=== PATIENT | female | born 1990 | race African-American/Black ===

== ENCOUNTER 2017-03-22 14:07 | Emergency (ER) | payer OTHER ==
[2017-03-22 14:22] VITALS: BP 132/89; PULSE 92; TEMP 97.7; BMI 27.4
--- NOTE | 2017-03-22 15:57 | PDOC ---
History of Present Illness - General Chief Complaint: Pain Stated Complaint: PAIN Time Seen by Provider: 03/22/17 15:43 History Source: Patient Exam Limitations: No Limitations - History of Present Illness Initial Comments: 03/22/17 15:51 c/o sudden onset pain to the left side of face while sleeping this morning, left era pain radiates to in front of left ear. no fever no chills no dental pain no recent dental surgery . no fever, denies FB sensation in the ear. Pt has FROM of the jaw. 03/22/17 18:49 Timing/Duration: 4-6 hours, intermittent Severity: severe Associated Symptoms: denies: denies symptoms, chest pain, cough, diaphoresis, fever/chills, headaches, loss of appetite Past History - Past Medical History Allergies/Adverse Reactions: Allergies Allergy/AdvReac Type Severity Reaction Status Date / Time No Known Allergies Allergy Verified 03/22/17 14:22 Home Medications: Ambulatory Orders Amoxicillin - [Amoxicillin 875mg Tablet -] 875 mg PO BID #20 tablet 03/22/17 Oxycodone HCl/Acetaminophen [Percocet 5-325 mg Tablet] 1 tab PO Q4H PRN #6 tablet MDD 6 tabs 03/22/17 Prednisone [Deltasone] 20 mg PO DAILY #3 tablet 03/22/17 Asthma: No Cancer: No Cardiac Disorders: No COPD: No Diabetes: No HTN: No Seizures: No Thyroid Disease: No - Suicide/Smoking/Psychosocial Hx Smoking Status: No Smoking History: Never smoked Number of Cigarettes Smoked Daily: 0 Hx Alcohol Use: No Drug/Substance Use Hx: No Hx Substance Use Treatment: No Review of Systems - Review of Systems Able to Perform ROS?: Yes Is the patient limited Luxembourgish proficient: No Constitutional: No: Symptoms Reported HEENTM: Yes: Symptoms Reported Respiratory: No: Symptoms reported : No: Symptoms Reported Musculoskeletal: No: Symptoms Reported Integumentary: No: Symptoms Reported, Pallor Neurological: No: Symptoms reported *Physical Exam - Vital Signs Last Vital Signs Temp Pulse Resp BP Pulse Ox 97.7 F 92 H 18 132/89 99 03/22/17 14:18 03/22/17 14:18 03/22/17 14:18 03/22/17 14:18 03/22/17 14:18 - Physical Exam General Appearance: Yes: Nourished, Appropriately Dressed HEENT: positive: EOMI, STEFAN, TM Dull (left ear , neg mastoid tenderness, negative lymphadeonapthy, pt also with pain to her left gum line dental pain , no abscess, missing teeth ), TM Erythema, Other (tender to lower left gum line no abscess or drainage ). negative: Pharynx Normal, Rhinorrhea Neck: positive: Supple, Other (FROM of the neck ). negative: Tender, Lymphadenopathy (R), Lymphadenopathy (L), Rigidity, Tender lateral, Tender midline Respiratory/Chest: positive: Lungs Clear, Normal Breath Sounds. negative: Chest Tender Cardiovascular: positive: Regular Rhythm, Regular Rate Gastrointestinal/Abdominal: positive: Normal Bowel Sounds Musculoskeletal: positive: Normal Inspection Extremity: positive: Normal Capillary Refill, Normal Inspection, Normal Range of Motion Integumentary: positive: Normal Color, Dry, Warm Neurologic: positive: Fully Oriented, Alert, Normal Mood/Affect, Normal Response , Motor Strength 5/5, Finger to Nose (intact ), Other (neg facial droop or asymetry ) *DC/Admit/Observation/Transfer Diagnosis at time of Disposition: Pain, dental Otitis media Qualifiers: Otitis media type: suppurative Chronicity: acute Laterality: left Recurrence: not specified as recurrent Spontaneous tympanic membrane rupture: without spontaneous rupture Qualified Code(s): H66.002 - Acute suppurative otitis media without spontaneous rupture of ear drum, left ear - Discharge Dispostion Disposition: HOME Condition at time of disposition: Good - Prescriptions Prescriptions: Amoxicillin - [Amoxicillin 875mg Tablet -] 875 mg PO BID #20 tablet Oxycodone HCl/Acetaminophen [Percocet 5-325 mg Tablet] 1 tab PO Q4H PRN #6 tablet MDD 6 tabs PRN Reason: Severe Pain Prednisone [Deltasone] 20 mg PO DAILY #3 tablet - Referrals Referrals: Lv Mckeon MD [Primary Care Provider] - Denny Valderrama MD [Staff Physician] - - Patient Instructions Additional Instructions: follow with your doctor or ENT within the next 2 days for follow up take amoxicillin as directed for 10 days take the prednisone for 3 days take percocet for severe pain apply warm compresses to the area of pain every 3hrs for 30 minutes return to ER for any worsening symptoms - Post Discharge Activity
== END 2017-03-22 16:03 | disposition home or self-care (01) ==
LOC: JERFT 14:07
DX: H66.002 Acute suppurative otitis media without spontaneous rupture of ear drum, left ear (principal); K08.89 Other specified disorders of teeth and supporting structures
CPT/HCPCS: 99281-25

== ENCOUNTER 2018-03-05 14:47 | Emergency (ER) | payer OTHER ==
[2018-03-05 15:05] VITALS: BP 108/71; PULSE 80; TEMP 98.5; BMI 29.2
--- NOTE | 2018-03-05 15:52 | PDOC ---
History of Present Illness - General Chief Complaint: Cold Symptoms Stated Complaint: COUGHING Time Seen by Provider: 03/05/18 15:12 History Source: Patient Exam Limitations: Clinical Condition - History of Present Illness Initial Comments: 03/05/18 15:46 Patient with no significant past medical history advice form Department of Health to come in for treatment for pertussis status post child testing positive for pertussis yesterday. Patient reported mild intermittent cough. Patient denies fever, chills or any other symptoms. Timing/Duration: 24 hours Past History - Past Medical History Allergies/Adverse Reactions: Allergies Allergy/AdvReac Type Severity Reaction Status Date / Time No Known Allergies Allergy Verified 03/05/18 15:03 Home Medications: Ambulatory Orders Azithromycin [Zithromax 250mg Tablets -] 250 mg PO UTDICT #6 tab 03/05/18 Benzonatate [Tessalon Pearls -] 100 mg PO TID PRN #21 capsule 03/05/18 Ipratropium [place] 2 spray NS BID PRN #1 spray 03/05/18 Asthma: No Cancer: No Cardiac Disorders: No COPD: No Diabetes: No HTN: No Seizures: No Thyroid Disease: No - Suicide/Smoking/Psychosocial Hx Smoking Status: No Smoking History: Never smoked Number of Cigarettes Smoked Daily: 0 Hx Alcohol Use: No Drug/Substance Use Hx: No Hx Substance Use Treatment: No Review of Systems - Review of Systems Able to Perform ROS?: Yes Is the patient limited Greek proficient: No Constitutional: No: Chills, Fever, Malaise HEENTM: Yes: Symptoms Reported, See HPI, Nose Congestion. No: Eye Pain, Blurred Vision, Tearing, Recent change in vision, Double Vision, Cataracts, Ear Pain, Ocular Prothesis, Ear Discharge, Nose Pain, Tinnitus, Nose Bleeding, Hearing Loss, Throat Pain, Throat Swelling, Mouth Pain, Dental Problems, Difficulty Swallowing, Mouth Swelling, Other Respiratory: Yes: Symptoms reported, See HPI, Cough (intermittent). No: Orthopnea, Shortness of Breath, SOB with Exertion, SOB at Rest, Stridor, Wheezing, Productive cough, Hemoptysis, Other Cardiac (ROS): No: Symptoms Reported, See HPI, Chest Pain, Edema, Irregular Heart Rate, Lightheadedness, Palpitations, Syncope, Chest Tightness, Other ABD/GI: No: Nausea, Vomiting All Other Systems: Reviewed and Negative *Physical Exam - Vital Signs Last Vital Signs Temp Pulse Resp BP Pulse Ox 98.5 F 80 18 108/71 99 03/05/18 15:03 03/05/18 15:03 03/05/18 15:03 03/05/18 15:03 03/05/18 15:03 - Physical Exam Comments: 03/05/18 15:50 GENERAL: Well developed, well nourished. Awake and alert. No acute distress. HEENT: Normocephalic, atraumatic. PERRLA, EOMI. No conjunctival pallor. Sclera are non-icteric. Moist mucous membranes. Oropharynx is clear. NECK: Supple. Full ROM. CARDIOVASCULAR: Regular rate and rhythm. No murmurs, rubs, or gallops. Distal pulses are 2+ and symmetric. PULMONARY: No evidence of respiratory distress. Lungs clear to auscultation bilaterally. No wheezing, rales or rhonchi. ABDOMINAL: Soft. Non-tender. Non-distended. No rebound or guarding. No organomegaly. Normoactive bowel sounds. MUSCULOSKELETAL Normal range of motion at all joints. EXTREMITIES: No cyanosis. No clubbing. No edema. No calf tenderness. SKIN: Warm and dry. Normal capillary refill. No rashes. No jaundice. NEUROLOGICAL: Alert, awake, appropriate. Gait is normal without ataxia. PSYCHIATRIC: Cooperative. Good eye contact. Appropriate mood General Appearance: Yes: Nourished, Appropriately Dressed. No: Apparent Distress Moderate Sedation - Procedure Monitoring Vital Signs: Procedure Monitoring Vital Signs Temperature 98.5 F 03/05/18 15:03 Pulse Rate 80 03/05/18 15:03 Respiratory Rate 18 03/05/18 15:03 Blood Pressure 108/71 03/05/18 15:03 O2 Sat by Pulse Oximetry (%) 99 03/05/18 15:03 Medical Decision Making - Medical Decision Making 03/05/18 15:50 Patient with no significant past medical history advice form Department of Health to come in for treatment for pertussis status post child testing positive for pertussis yesterday. Patient reported mild intermittent cough. Clinical exam unremarkable. Lungs clear to auscultation bilateral. Pertussis PCR lab ordered. Patient be discharged on azithromycin for 5 days given postexposure as requested by Department of Health *DC/Admit/Observation/Transfer Diagnosis at time of Disposition: Pertussis exposure, Cough - Discharge Dispostion Disposition: HOME Condition at time of disposition: Stable Decision to Admit order: No - Prescriptions Prescriptions: Azithromycin [Zithromax 250mg Tablets -] 250 mg PO UTDICT #6 tab Benzonatate [Tessalon Pearls -] 100 mg PO TID PRN #21 capsule PRN Reason: Cough Ipratropium [place] 2 spray NS BID PRN #1 spray PRN Reason: nasal congestion - Referrals Referrals: Jackelyn Mckeon [Primary Care Provider] - - Patient Instructions Printed Discharge Instructions: DI for Pertussis-Adult, Pertussis Additional Instructions: Take medication as prescribed. Increase fluid intake. You will be contacted with lab results. - Post Discharge Activity
== END 2018-03-05 16:03 | disposition home or self-care (01) ==
LOC: JERFT 14:47
DX: A37.90 Whooping cough, unspecified species without pneumonia (principal)
CPT/HCPCS: 87798; 99281-25

== ENCOUNTER 2019-04-17 19:01 | Emergency (ER) | payer OTHER ==
[2019-04-17 19:35] VITALS: BP 124/88; PULSE 90; TEMP 98.3; BMI 34.8
--- NOTE | 2019-04-17 19:46 | PDOC ---
History of Present Illness - General Chief Complaint: Injury Stated Complaint: FALL ANKLE INJURY Time Seen by Provider: 04/17/19 19:35 History Source: Patient - History of Present Illness Occurred: reports: this evening Severity: Yes: moderate Lower Extremity Pain Location: right: ankle Method of Injury: Yes: fell Past History - Past Medical History Allergies/Adverse Reactions: Allergies Allergy/AdvReac Type Severity Reaction Status Date / Time No Known Allergies Allergy Verified 04/17/19 19:35 Home Medications: Ambulatory Orders Ibuprofen [Motrin -] 600 mg PO QID #28 tablet 04/17/19 Asthma: No Cancer: No Cardiac Disorders: No COPD: No Diabetes: No HTN: No Seizures: No Thyroid Disease: No - Psycho Social/Smoking Cessation Hx Smoking Status: No Smoking History: Never smoked Number of Cigarettes Smoked Daily: 0 Hx Alcohol Use: No Drug/Substance Use Hx: No Hx Substance Use Treatment: No Review of Systems - Review of Systems Musculoskeletal: Yes: Joint Pain, Joint Swelling *Physical Exam - Vital Signs Last Vital Signs Temp Pulse Resp BP Pulse Ox 98.3 F 90 18 124/88 98 04/17/19 19:32 04/17/19 19:32 04/17/19 19:32 04/17/19 19:32 04/17/19 19:32 - Physical Exam General Appearance: Yes: Appropriately Dressed. No: Apparent Distress HEENT: positive: Normal Voice Neck: positive: Supple Respiratory/Chest: negative: Respiratory Distress Extremity: positive: Tender (diffusely to R ankle, no sig swelling) Integumentary: positive: Dry, Warm Neurologic: positive: Fully Oriented, Alert, Normal Mood/Affect ED Treatment Course - RADIOLOGY Radiology Studies Ordered: Category Date Time Status ANKLE & FOOT-RIGHT* [RAD] Stat Radiology 04/17/19 19:38 Ordered Medical Decision Making - Medical Decision Making 04/17/19 20:26 29-year-old female no significant history here with right ankle pain and swelling after falling down several steps this evening. Has not been able to bear weight since. Denies any other injuries see exam Ankle sprain XR neg for fx ELSIE, ortho shoe and crutches given -Dc w/ pain control and RICE -Ortho f/u as needed Discharge - Discharge Information Problems reviewed: Yes Clinical Impression/Diagnosis: Ankle sprain Qualifiers: Encounter type: initial encounter Involved ligament of ankle: unspecified ligament Laterality: right Qualified Code(s): S93.401A - Sprain of unspecified ligament of right ankle, initial encounter Condition: Good Disposition: HOME - Additional Discharge Information Prescriptions: Ibuprofen [Motrin -] 600 mg PO QID #28 tablet - Follow up/Referral Referrals: Neeraj Ronquillo MD [Staff Physician] - - Patient Discharge Instructions Patient Printed Discharge Instructions: DI for Ankle Sprain Additional Instructions: Take Motrin as needed for pain, elevate extremity and use crutches as needed for weight bearing If pain persist after 2 weeks, please follow-up with orthopedics - Post Discharge Activity
[2019-04-17] MEDS ORDERED: IBUPROFEN 400 MG TABLET (FP) PO ONE ×2 (20:23→20:26)
== END 2019-04-17 20:59 | disposition home or self-care (01) ==
LOC: JERFT 19:01
DX: S93.401A Sprain of unspecified ligament of right ankle, initial encounter (principal)
CPT/HCPCS: 73610-TC-RT-FY; 73630-TC-RT-FY; 99283-25

== ENCOUNTER 2020-08-11 11:27 | Emergency (ER) | payer OTHER ==
[2020-08-11 11:36] VITALS: BP 111/79; PULSE 96; TEMP 98.7; BMI 32.4
== END 2020-08-11 12:47 | disposition home or self-care (01) ==
LOC: JERFT 11:27
DX: H61.21 Impacted cerumen, right ear (principal)
CPT/HCPCS: 99282-25

== ENCOUNTER 2020-09-21 16:28 | Emergency (ER) | payer OTHER ==
[2020-09-21 16:43] VITALS: BP 116/59; BMI 32.5
[2020-09-21] MEDS ORDERED: KETOROLAC TROMETHAMINE 30 MG/1 ML VIAL IM ONE (16:43)
[2020-09-21] MEDS ORDERED: ACETAMINOPHEN 500 MG TABLET (FP) PO ONE (16:43)
[2020-09-21] MEDS ORDERED: ACETAMINOPHEN 325 MG TABLET (FP) ONE (16:48)
[2020-09-21] MEDS ORDERED: KETOROLAC TROMETHAMINE 30 MG/1 ML VIAL ONE (16:48)
[2020-09-21 18:46] VITALS: PULSE 102; TEMP 99.5
== END 2020-09-21 18:45 | disposition home or self-care (01) ==
LOC: JER 16:28
PROC: 3E0233Z Introduction of Anti-inflammatory into Muscle, Percutaneous Approach (ICD-10-PCS; principal; 2020-09-21)
DX: U07.1 COVID-19 (principal)
CPT/HCPCS: 99284-25; C9803; U0003; U0005

== ENCOUNTER 2021-02-23 09:46 | Emergency (ER) | payer OTHER ==
[2021-02-23 10:07] VITALS: BP 138/77; PULSE 104; TEMP 97.8; BMI 32.5
== END 2021-02-23 10:39 | disposition home or self-care (01) ==
LOC: JERFT 09:46
DX: K08.89 Other specified disorders of teeth and supporting structures (principal); K02.9 Dental caries, unspecified
CPT/HCPCS: 99281-25

== ENCOUNTER 2022-11-27 01:13 | Emergency (ER) | payer OTHER ==
[2022-11-27 01:47] VITALS: BP 128/82; PULSE 94; RESP 20; TEMP 97.2; BMI 34.3
[2022-11-27] MEDS ORDERED: ACETAMINOPHEN 1000 MG/100 ML BAG IVPB ONE (02:20)
[2022-11-27] MEDS ORDERED: SODIUM CHLORIDE 0.9% 500 ML INFUS.BAG IV ONE (02:35)
[2022-11-27] MEDS ORDERED: ACETAMINOPHEN INJECTION 100 ML IVPB ONE (02:47)
[2022-11-27 02:50] LABS: BASO % 0.3 % (0-2.0); EOS % 0.3 % (0-4.5); HEMATOCRIT 39.1 % (32.4-45.2); HEMOGLOBIN 13.3 GM/dL (10.7-15.3); LYMPH % 12.1 % (8-40); MCH 28.6 pg (25.7-33.7); MEAN CELL VOLUME 84.2 fl (80-96); MEAN PLT VOLUME 8.3 fl (7.5-11.1); MONO % 4.7 % (3.8-10.2); NEUT % 82.6 % (42.8-82.8); PLATELET COUNT 255 10^3/uL (134-434); RBC 4.64 M/mm3 (3.60-5.2); RDW 13.3 % (11.6-15.6); WHITE BLOOD COUNT 9.8 K/mm3 (4.0-10.0)
[2022-11-27 03:06] LABS: POTASSIUM 3.9 mmol/L (3.5-5.1)
[2022-11-27 03:09] LABS: CALCIUM 8.8 mg/dL (8.5-10.1)
[2022-11-27 03:10] LABS: ALBUMIN 3.6 g/dl (3.4-5.0); BLOOD UREA NITROGEN 10.8 mg/dL (7-18); MAGNESIUM 1.9 mg/dL (1.8-2.4)
[2022-11-27 03:13] LABS: CREATININE 0.9 mg/dL (0.55-1.3)
[2022-11-27 03:14] LABS: BILIRUBIN,TOTAL 0.7 mg/dL (0.2-1); TOT PROT 7.6 g/dl (6.4-8.2)
[2022-11-27 03:27] LABS: INR 1.03 (0.83-1.09); PROTHROMBIN TIME (PATIENT) 11.9 SEC (9.7-13.0)
[2022-11-27 03:28] LABS: EPI CELLS 9 /uL (0-25.1); HYALINE CASTS 1 /uL (0-3.1); URINE APPEARANCE CLEAR; URINE BACTERIA 99 /uL (0-1359); URINE BILIRUBIN NEGATIVE (NEGATIVE); URINE COLOR YELLOW; URINE GLUCOSE (UA) NEGATIVE (NEGATIVE); URINE KETONE NEGATIVE (NEGATIVE); URINE LEUK ESTERASE NEGATIVE (NEGATIVE); URINE NITRITE NEGATIVE (NEGATIVE); URINE PROTEIN NEGATIVE (NEGATIVE); URINE RBC 227 /uL (0-23.9); URINE UROBILINOGEN 0.2 mg/dL (0.2-1.0); URINE WBC 11 /uL (0-25.8)
[2022-11-27 03:30] LABS: ACTIVATED PTT 30.3 SECONDS (25.2-36.5)
== END 2022-11-27 05:02 | disposition home or self-care (01) ==
LOC: JER 01:13
PROC: 3E033NZ Introduction of Analgesics, Hypnotics, Sedatives into Peripheral Vein, Percutaneous Approach (ICD-10-PCS; principal; 2022-11-27)
DX: R10.11 Right upper quadrant pain (principal); K80.50 Calculus of bile duct without cholangitis or cholecystitis without obstruction; N20.0 Calculus of kidney
CPT/HCPCS: 36415; 76705-TC; 80053; 81003; 83690; 83735; 84703; 85025; 85610; 85730; 86850; 86900; 86901; 87086; 96374; 99284-25

== ENCOUNTER 2022-12-05 04:37 | Day surgery (SDC) | payer OTHER ==
[2022-12-03 12:12] VITALS: BMI 34.3
[2022-12-05] MEDS ORDERED: MIDAZOLAM HCL 2 MG/2 ML SINGLE DOSE VIAL ONE (10:06)
[2022-12-05] MEDS ORDERED: FENTANYL CITRATE/PF 50 MCG/ML VIAL ONE ×7 (10:06→13:21)
[2022-12-05] MEDS ORDERED: ceFAZolin SODIUM 1 GM VIAL IVPB ONE (10:15)
[2022-12-05] MEDS ORDERED: oxyCODONE HCL 5 MG TABLET PO PRN ×2 (10:20)
[2022-12-05] MEDS ORDERED: LACTATED RINGERS SOLUTION 1,000 ML IV SCH (10:30)
[2022-12-05] MEDS ORDERED: BUPIVACAINE HCL/PF 0.5% (5MG/ML) 10 ML VIAL IJ ONE ×2 (10:32)
[2022-12-05] MEDS ORDERED: NEOSTIGMINE METHYLSULFATE 0.5 MG/1 ML - 10 ML MDV ONE (11:35)
[2022-12-05 14:06] VITALS: RESP 20
[2022-12-05 14:17] VITALS: TEMP 97.3
[2022-12-05 16:41] VITALS: BP 118/68; PULSE 65
== END 2022-12-05 15:30 | disposition home or self-care (01) ==
LOC: JASU-SURG 04:37
PROVIDERS: ATTEND Surgery
PROC: 0FT44ZZ Resection of Gallbladder, Percutaneous Endoscopic Approach (ICD-10-PCS; principal; 2022-12-05 10:00)
DX: K80.10 Calculus of gallbladder with chronic cholecystitis without obstruction (principal)
CPT/HCPCS: 81025; 88304-TC; 94760

== ENCOUNTER 2022-12-11 08:05 | Emergency (ER) | payer OTHER ==
[2022-12-11 08:12] VITALS: BP 121/86; PULSE 92; RESP 18; TEMP 98.9; BMI 34.7
[2022-12-11] MEDS ORDERED: LIDOCAINE VISCOUS 2% ORAL/TOP 15 ML UNIT-DOSE CUP MM ONE (08:44)
[2022-12-11] MEDS ORDERED: LIDOCAINE VISCOUS 2% ORAL/TOP 15 ML UNIT-DOSE CUP ONE (08:49)
[2022-12-11] MEDS ORDERED: AMOXICILLIN 500 MG CAPSULE (FP) PO ONE (09:35)
[2022-12-11] MEDS ORDERED: AMOXICILLIN 500 MG CAPSULE (FP) ONE (09:54)
== END 2022-12-11 10:07 | disposition home or self-care (01) ==
LOC: JER 08:05
DX: K08.89 Other specified disorders of teeth and supporting structures (principal); G89.29 Other chronic pain; R51.9 Headache, unspecified; K59.00 Constipation, unspecified; R11.0 Nausea
CPT/HCPCS: 99283-25